=== PATIENT | female | born 1990 | race Caucasian/White ===

== ENCOUNTER → 2017-12-14 | Outpatient (REF) ==
[2017-12-14 15:06] LABS: HEPATITIS B SURFACE ANTIBODY NEGATIVE (POSITIVE)
[2017-12-14 15:15] LABS: RUBELLA IgG QUALITATIVE IMMUNE (IMMUNE)
[2017-12-15 08:06] LABS: RUBEOLA IgG ANTIBODY <25.0 AU/mL (Immune >29.9)
== END ==
LOC: M LAB 13:00
DX: Z00.00 Encounter for general adult medical examination without abnormal findings (principal)

== ENCOUNTER 2019-04-18 07:43 | Emergency (ER) | payer BC ==
[~2019-04-18] VITALS: Ht 152.4 cm; Wt 49.1 kg
[2019-04-18 07:44] VITALS: BP 112/72
[2019-04-18] MEDS ORDERED: DOXY100C37 PO (08:21)
--- NOTE | 2019-04-18 08:36 | ED PDOC ---
Post-Departure Follow-Up Called pharmacy and cancelled Rx for doxycycline. Gave patient the dose in the ER. SHILPA Stock BROOKE D. PA-C April 18, 2019 08:36
[2019-04-18] MEDS ORDERED: DOXYCYCLINE HYCLATE 100 MG TAB PO ONE (08:45)
== END 2019-04-18 08:50 | disposition home or self-care (01) ==
LOC: M ED 07:43
DX: S30.860A Insect bite (nonvenomous) of lower back and pelvis, initial encounter (principal); W57.XXXA Bitten or stung by nonvenomous insect and other nonvenomous arthropods, initial encounter; Y92.89 Other specified places as the place of occurrence of the external cause; F90.9 Attention-deficit hyperactivity disorder, unspecified type

== ENCOUNTER → 2019-07-23 | Outpatient (CLI) | payer BC ==
[~2019-07-23] MED LIST: DOXY100C37 PO
== END ==
LOC: M LAB 08:21
PROVIDERS: ATTEND Physician Assistant
DX: K90.41 Non-celiac gluten sensitivity (principal)

== ENCOUNTER 2019-11-15 10:52 | Emergency (ER) | payer BC ==
[~2019-11-15] VITALS: Ht 154.9 cm; Wt 50.0 kg
[2019-11-15] MEDS ORDERED: LORazepam 2 MG/ML VIAL (J2060) IV STA ×2 (11:34→11:42)
[2019-11-15] MEDS ORDERED: AMPH1CAP14 PO (11:35)
[2019-11-15] MEDS ORDERED: LORazepam 2 MG/ML VIAL (J2060) As Ordered ONE (11:35)
[2019-11-15] MEDS ORDERED: levETIRAcetam INJection 1,000 MG in D5W 100 ML IV ONE (11:45)
[2019-11-15 11:55] LABS: HEMATOCRIT 44.8 % (36.0-47.0); HEMOGLOBIN 14.5 g/dl (12.0-15.5); MEAN CORPUSCULAR HGB CONC 32.4 g/dl (32.0-36.5); MEAN CORPUSCULAR VOLUME 102.1 fl (80.0-96.0); PLATELET COUNT, AUTOMATED 506 10^3/uL (150-450); RED BLOOD COUNT 4.39 10^6/uL (4.00-5.40)
[2019-11-15] MEDS ORDERED: ONDANSETRON 4MG/2ML VIAL (J2405) IV ONE (12:00)
--- NOTE | 2019-11-15 12:21 | ECGEPIP ---
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
[2019-11-15 12:31] LABS: ATYPICAL LYMPH 8 % (0-5); EOSINOPHILS 1 % (0-3); LYMPHOCYTES 33 % (16-44); METAMYELOCYTES 1 % (0-0); MONOCYTES 9 % (0-5); NEUTROPHILS 48 % (28-66)
[2019-11-15 12:32] LABS: ANISOCYTOSIS 1+; HYPOCHROMASIA 1+; PLATELET ESTIMATE INCREASED (NORMAL)
[2019-11-15 13:12] LABS: ACETAMINOPHEN LEVEL < 2.0 UG/ML (10.0-30.0); CPK CREATINE PHOSPHOKINASE 123 U/L (26-192); ETHYL ALCOHOL (ETHANOL) < 0.003 % (0.000-0.010); SALICYLATE LEVEL < 1.7 MG/DL (5.0-30.0)
--- NOTE | 2019-11-15 13:21 | REP ---
REASON: History of seizure. COMPARISON: None. The technique utilized in obtaining the radiograph has magnified the cardiac silhouette and accentuated the interstitial markings. FINDINGS: The superior mediastinal structures are midline. The cardiac silhouette is unremarkable in size, shape, and position. The diaphragmatic surfaces of the lungs are regular, and the costophrenic angles are clear. The pulmonary mari are clear. The imaged osseous structures are intact. IMPRESSION: There is no acute cardiopulmonary disease. Electronically Signed by Raul Barragan DO 11/15/2019 01:25 P
[2019-11-15] MEDS ORDERED: KEPP1TAB PO (17:29)
[2019-11-15 18:16] VITALS: BP 126/60
--- NOTE | 2019-11-16 07:07 | REP ---
REASON: Seizure disorder. PRIORS: None. Patient has had previous right parietal craniotomy. 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 This is likely secondary to chronic change at least in part due to postoperative change. I have no priors for comparison. There is no evidence of an acute intracranial hemorrhage. There is no shift in the midline structures. The imaged paranasal sinuses and mastoid air cells are clear. IMPRESSION: Likely postoperative changes as described above. There is no evidence of acute disease. I have no priors for comparison. Electronically Signed by Raul Barragan DO 11/16/2019 08:56 A
== END 2019-11-15 18:18 | disposition home or self-care (01) ==
LOC: M ED 10:52 → EEVIPCON 10:52 → M ED 18:18
DX: R56.9 Unspecified convulsions (principal); F90.9 Attention-deficit hyperactivity disorder, unspecified type; Z79.899 Other long term (current) drug therapy
CPT/HCPCS: 70450; 71045; 80047; 82550; 84443; 84702; 85025; 93005; 96365; 96375; 99291; G0480; J1953; J2060; J2405

== ENCOUNTER → 2020-01-24 | Outpatient (CLI) | payer BC ==
[~2020-01-24] MED LIST changes: +AMPH1CAP14 PO; +KEPP1TAB PO
[2020-01-24 08:35] LABS: FREE T4 1.07 NG/DL (0.76-1.46); THYROID STIMULATING HORMONE 1.79 uIU/ML (0.358-3.740)
== END ==
LOC: M LAB 07:30
PROVIDERS: ATTEND Family Medicine
DX: Z13.29 Encounter for screening for other suspected endocrine disorder (principal); F32.89 Other specified depressive episodes

== ENCOUNTER → 2020-04-13 | Outpatient (CLI) | payer BC ==
[~2020-04-13] MED LIST changes: +AMOX875T PO; +IBUP200C25 PO; +ONDA4TAB6 PO
== END ==
LOC: M LAB 13:19
PROVIDERS: ATTEND Internal Medicine
DX: J02.9 Acute pharyngitis, unspecified (principal)

== ENCOUNTER 2020-04-17 14:44 | Emergency (ER) | payer OTHER, BC ==
[~2020-04-17] VITALS: Ht 152.4 cm; Wt 50.0 kg
[~2020-04-17 14:44] MED LIST changes: -IBUP200C25 PO; -ONDA4TAB6 PO
[2020-04-17 14:45] VITALS: BP 146/87
[2020-04-17] MEDS ORDERED: IBUP200C25 PO (14:54)
[2020-04-17] MEDS ORDERED: ACETAMINOPHEN 325 MG TAB PO ONE (16:15)
[2020-04-17] MEDS ORDERED: ONDA4TAB6 PO (16:39)
== END 2020-04-17 16:51 | disposition home or self-care (01) ==
LOC: M ED 14:44
DX: S06.0X0A Concussion without loss of consciousness, initial encounter (principal); Y04.2XXA Assault by strike against or bumped into by another person, initial encounter; Y92.238 Other place in hospital as the place of occurrence of the external cause; Y93.F9 Activity, other caregiving; Y99.0 Civilian activity done for income or pay; Z79.2 Long term (current) use of antibiotics